=== PATIENT | female | born 2000 | race Caucasian/White ===

== ENCOUNTER 2023-05-14 19:10 | Emergency (ER) | payer BC, OTHER ==
[2023-05-14] MEDS ORDERED: Amoxicillin/Potassium Clav 875 MG TAB ONE (20:06)
[2023-05-14] MEDS ORDERED: Boostrix 0.5 ML (Tdap) VIAL (>/=7 yrs of age) ONE (20:06)
[2023-05-14] MEDS ORDERED: Rabies Immune Globulin/PF 300 UNITS/ML VIAL IM SCH (20:15)
[2023-05-14] MEDS ORDERED: Rabies Vaccine Human 2.5 UNITS VIAL IM ONE (20:15)
[2023-05-14] MEDS ORDERED: Bacitracin 1 PK ONE (21:10)
== END 2023-05-14 21:20 | disposition home or self-care (01) ==
LOC: CSHERS 19:10
DX: S61.052A Open bite of left thumb without damage to nail, initial encounter (principal); S61.032A Puncture wound without foreign body of left thumb without damage to nail, initial encounter; S50.812A Abrasion of left forearm, initial encounter; S50.811A Abrasion of right forearm, initial encounter; F17.210 Nicotine dependence, cigarettes, uncomplicated; W55.01XA Bitten by cat, initial encounter; Z23 Encounter for immunization
CPT/HCPCS: 90375; 90471; 90472; 90675; 90715; 96372